=== PATIENT | male | born 1980 | race Two or more races ===

== ENCOUNTER → 2023-10-31 | Day surgery (SDC) | payer OTHER ==
[2023-10-14 10:20] LABS: PH,URINE 5.5 (5.0-8.0); URINE APPEARANCE Clear; URINE BILIRRUBIN Negative (NEGATIVE); URINE BLOOD Negative; URINE COLOR Yellow; URINE GLUCOSE Negative (NEGATIVE); URINE LEUKOCYTE Negative; URINE NITRATE Negative; URINE PROTEIN Negative (NEGATIVE); URINE UROBILINOGEN 0.2 E.U./dl
[2023-10-14 10:30] LABS: HEMATOCRIT 45.6 % (39.0-48.0); HEMOGLOBIN 15.5 g/dL (13-16.00); MEAN CELL VOLUME 85.8 fL (80.0-100.00); MEAN CORPUSCULAR HEMOGLOBIN 29.2 pg (27.00-32.0); PLATELET COUNT 195 K/uL (150-450); RED BLOOD COUNT 5.31 M/uL (4.00-6.00); RED CELL DISTRIBUTION WIDTH 13.7 % (11.5-14.5)
[2023-10-14 10:46] LABS: INR 0.96; PARTIAL THROMBOPLASTIN TIME 31.9 SECONDS (22.0-34.0); PROTHROMBIN TIME 10.1 SECONDS (9.0-11.5)
[2023-10-14 10:49] LABS: ALBUMIN 4.5 gm/dL (3.4-5.0); CALCIUM 9.6 mg/dL (8.5-10.1); CREATININE SERUM 1.03 mg/dL (0.70-1.30); GFR 79.2; PHOSPHOROUS 2.9 mg/dL (2.5-4.9); POTASSIUM 4.21 mEq/L (3.5-5.1)
[2023-10-14 10:53] LABS: URINE RBC 0.5 uL (0.0-20.8); URINE WBC 0.4 uL (0.0-23.2)
[~2023-10-31] MED LIST: BACITRACIN 28.35 GM OINT.TUBE TOP ONE; BUPIVACAINE HCL/PF 0.5% 30ML ML ONE; CEFAZOLIN SODIUM 1,000 MG VIAL IV ONE; CEFAZOLIN SODIUM 1,000 MG VIAL ONE; CEPHALEXIN500 MG PO; CIPROFLOXACIN2.5 ML OTIC; DEXAMETHASONE SODIUM PHOSPHATE 4 MG/ML VIAL IV ONE; DEXAMETHASONE SODIUM PHOSPHATE 4 MG/ML VIAL ONE; EPINEPHRINE HCL/PF 1 MG/ML AMPUL IJ ONE; EPINEPHRINE HCL/PF 1 MG/ML AMPUL ONE; LIDOCAINE HCL/EPINEPHRINE 10MG/ML 1% 50ML IJ ONE; NEOMYCIN/POLYMYXIN B/HYDROCORT 20 DR/ML BOTTLE OT ONE; POVIDONE-IODINE 118 ML BOTT TOP ONE
== END | disposition home or self-care (01) ==
LOC: ADM 10-14 08:15 → CIR.AMB 10-24 07:00
PROVIDERS: ATTEND Otolaryngology Otology & Neurotology
DX: H80.82 Other otosclerosis, left ear (principal); H90.A12 Conductive hearing loss, unilateral, left ear with restricted hearing on the contralateral side; Z20.822 Contact with and (suspected) exposure to COVID-19